=== PATIENT | male | born 1975 | race Caucasian/White ===

== ENCOUNTER 2016-12-22 09:26 | Emergency (ER) | payer OTHER ==
[2016-12-22 09:41] VITALS: RESP 20; TEMP 97.8
[2016-12-22] MEDS ORDERED: SODIUM CHLORIDE 0.9% 1,000 ML IV STA (09:46)
[2016-12-22] MEDS ORDERED: ONDANSETRON 4 MG/2 ML VIAL IVP STA ×2 (09:46→10:10)
[2016-12-22] MEDS ORDERED: HYDROmorphone 1 MG/ML 1 ML SYRINGE IVP STA ×2 (09:46→10:06)
[2016-12-22 10:12] VITALS: PULSE 63
--- NOTE | 2016-12-22 10:17 | ED ---
Abdominal Pain HPI - General Chief Complaint: Abdominal Pain Stated Complaint: kidney stone Time Seen by Provider: 12/22/16 09:46 Source: patient, RN notes reviewed Mode of arrival: ambulatory Limitations: no limitations - History of Present Illness Initial Comments: 41-year-old male presents emergency Department with chief complaint of kidney stone. Patient states that he scheduled to have removal of his kidney stone and its stent placed. Patient states that he is concerned that his had increased pain that his kidneys may not be function. Patient states that he has urinary frequency but denies any dysuria. Patient states that he is very sensitive pain medications and states that [id number]-zva-[id number] medications are helping. Patient states that he was told not to use any anti-inflammatories prior to his procedure. Patient denies fever, chills. - Related Data Previous Rx's Medication Instructions Recorded oxyCODONE-APAP 5-325MG [Percocet 1 tab PO Q6HR PRN #10 tab 12/22/16 5-325 mg] Allergies Allergy/AdvReac Type Severity Reaction Status Date / Time codeine AdvReac Nausea & Verified 12/22/16 10:01 Vomiting Review of Systems ROS Statement: Those systems with pertinent positive or pertinent negative responses have been documented in the HPI. ROS Other: All systems not noted in ROS Statement are negative. Past Medical History Additional Past Medical History / Comment(s): kidney stones History of Any Multi-Drug Resistant Organisms: None Reported Past Surgical History: No Surgical Hx Reported Past Psychological History: No Psychological Hx Reported Smoking Status: Never smoker Past Alcohol Use History: None Reported Past Drug Use History: None Reported General Exam Limitations: no limitations General appearance: alert, in no apparent distress Head exam: Present: atraumatic, normocephalic, normal inspection Respiratory exam: Present: normal lung sounds bilaterally. Absent: respiratory distress, wheezes, rales, rhonchi, stridor Cardiovascular Exam: Present: regular rate, normal rhythm, normal heart sounds. Absent: systolic murmur, diastolic murmur, rubs, gallop, clicks GI/Abdominal exam: Present: soft, tenderness (Minimal), normal bowel sounds. Absent: distended, guarding, rebound, rigid Back exam: Absent: CVA tenderness (R), CVA tenderness (L) Skin exam: Present: warm, dry, intact, normal color. Absent: rash Course Vital Signs 12/22/16 12/22/16 12/22/16 09:38 10:11 11:05 Temperature 97.8 F Pulse Rate 79 63 Respiratory 20 20 Rate Blood Pressure 113/56 123/83 126/85 O2 Sat by Pulse 99 99 Oximetry Medical Decision Making - Medical Decision Making 41-year-old male present emergency department for flank pain, increased pain from kidney stone. Patient states his pain is under control this time. Patient has procedure on Monday. Patient's lab work within normal limits other than some hematuria noted. Return parameters were discussed. - Lab Data Result diagrams: 12/22/16 10:10 12/22/16 10:10 Lab Results 12/22/16 12/22/16 12/22/16 Range/Units 10:10 10:10 10:10 WBC 10.3 (3.8-10.6) k/uL RBC 5.07 (4.30-5.90) m/uL Hgb 15.9 (13.0-17.5) gm/dL Hct 45.9 (39.0-53.0) % MCV 90.4 (80.0-100.0) fL MCH 31.3 (25.0-35.0) pg MCHC 34.6 (31.0-37.0) g/dL RDW 12.4 (11.5-15.5) % Plt Count 307 (150-450) k/uL Neutrophils % 75 % Lymphocytes % 17 % Monocytes % 4 % Eosinophils % 2 % Basophils % 0 % Neutrophils # 7.8 H (1.3-7.7) k/uL Lymphocytes # 1.8 (1.0-4.8) k/uL Monocytes # 0.5 (0-1.0) k/uL Eosinophils # 0.2 (0-0.7) k/uL Basophils # 0.0 (0-0.2) k/uL Sodium 142 (137-145) mmol/L Potassium 4.5 (3.5-5.1) mmol/L Chloride 106 (98-107) mmol/L Carbon Dioxide 24 (22-30) mmol/L Anion Gap 12 mmol/L BUN 9 (9-20) mg/dL Creatinine 0.81 (0.66-1.25) mg/dL Est GFR (MDRD) Af Amer >60 (>60 ml/min/1.73 sqM) Est GFR (MDRD) Non-Af >60 (>60 ml/min/1.73 sqM) Glucose 84 (74-99) mg/dL Calcium 9.8 (8.4-10.2) mg/dL Total Bilirubin 0.9 (0.2-1.3) mg/dL AST 38 (17-59) U/L ALT 53 (21-72) U/L Alkaline Phosphatase 95 (38-126) U/L Total Protein 8.0 (6.3-8.2) g/dL Albumin 4.8 (3.5-5.0) g/dL Amylase 58 (30-110) U/L Lipase 66 (23-300) U/L Urine Color Yellow Urine Appearance Clear (Clear) Urine pH 6.0 (5.0-8.0) Ur Specific [place] 1.013 (1.001-1.035) Urine Protein 1+ H (Negative) Urine Glucose (UA) Negative (Negative) Urine Ketones Negative (Negative) Urine Blood Large H (Negative) Urine Nitrate Negative (Negative) Urine Bilirubin Negative (Negative) Urine Urobilinogen <2.0 (<2.0) mg/dL Ur Leukocyte Esterase Negative (Negative) Urine RBC 77 H (0-5) /hpf Urine WBC 2 (0-5) /hpf Urine Bacteria Occasional H (None) /hpf Hyaline Casts 1 (0-2) /lpf Urine Mucus Rare H (None) /hpf Disposition Clinical Impression: Flank pain Disposition: HOME SELF-CARE Condition: Stable Instructions: Flank Pain (ED) Additional Instructions: Please return to the Emergency Department if symptoms worsen or any other concerns. Prescriptions: oxyCODONE-APAP 5-325MG [Percocet 5-325 mg] 1 tab PO Q6HR PRN #10 tab PRN Reason: Pain Time of Disposition: 11:17
[2016-12-22 10:29] LABS: Basophils % (A) 0 %; CH 32.2; CHCM 35.7; Eosinophils # (A) 0.2 k/uL (0-0.7); Eosinophils % (A) 2 %; HCT 45.9 % (39.0-53.0); HDW 2.75; HGB 15.9 gm/dL (13.0-17.5); Luc # (Auto) 0.09; Luc % (Auto) 1; Lymphocytes # (A) 1.8 k/uL (1.0-4.8); Lymphocytes % (A) 17 %; MCH 31.3 pg (25.0-35.0); MCHC 34.6 g/dL (31.0-37.0); MCV 90.4 fL (80.0-100.0); Mean Platelet Volume 7.7; Monocytes # (A) 0.5 k/uL (0-1.0); Monocytes % (A) 4 %; Neutrophils # (A) 7.8 k/uL (1.3-7.7); Neutrophils % (A) 75 %; RBC 5.07 m/uL (4.30-5.90); RDW 12.4 % (11.5-15.5); WBC 10.3 k/uL (3.8-10.6); WBC (Perox) 10.25
[2016-12-22 10:33] LABS: ALT 53 U/L (21-72); AST 38 U/L (17-59); Alkaline Phosphatase 95 U/L (38-126); Amylase 58 U/L (30-110); Anion Gap 12 mmol/L; Blood Urea Nitrogen 9 mg/dL (9-20); Calcium 9.8 mg/dL (8.4-10.2); Carbon Dioxide 24 mmol/L (22-30); Chloride 106 mmol/L (98-107); Glucose 84 mg/dL (74-99); Non-African American GFR(MDRD) >60 (>60 ml/min/1.73 sqM); Potassium 4.5 mmol/L (3.5-5.1); Sodium 142 mmol/L (137-145); Total Bilirubin 0.9 mg/dL (0.2-1.3)
--- NOTE | 2016-12-22 10:36 | XR ---
Abdomen HISTORY: Abdominal pain, history of kidney stones Frontal view of the abdomen on 2 images No comparisons There is no bowel obstruction or pneumoperitoneum evident. Lung bases are clear. Overlying bowel gas may obscure underlying detail, difficult to exclude nephrolithiasis. Bone mineralization is maintaine d. IMPRESSION: Nonobstructive bowel gas pattern.
[2016-12-22 10:57] LABS: Appearance,Urine Clear (Clear); Bacteria,Urine Occasional /hpf; Bilirubin,Urine Negative (Negative); Glucose,Urine (UA) Negative (Negative); Ketones,Urine Negative (Negative); Leukocyte Esterase,Urine Negative (Negative); Mucus,Urine Rare /hpf; Nitrite,Urine Negative (Negative); Particle Count 2729; Protein,Urine 1+ (Negative); RBC,Urine 77 /hpf (0-5); Specific Gravity,Urine 1.013 (1.001-1.035); UA Billing (MACRO vs. MICRO) MICRO; Urobilinogen,Urine <2.0 mg/dL (<2.0); WBC,Urine 2 /hpf (0-5)
[2016-12-22 11:05] VITALS: BP 126/85
== END 2016-12-22 11:41 | disposition home or self-care (01) ==
LOC: EC 09:26
DX: R10.9 Unspecified abdominal pain (principal); Z88.5 Allergy status to narcotic agent; Z87.442 Personal history of urinary calculi
CPT/HCPCS: 96374; 96375; 96361; 99284; 36415; 80053; 82150; 83690; 85025; 81001; 87086; 74000; J2405; J1170

== ENCOUNTER 2016-12-27 12:19 | Day surgery (SDC) | payer OTHER ==
[2016-12-22 14:43] VITALS: BMI 28.1
[~2016-12-27 12:19] MED LIST: DEXAMETHASONE SOD PHOSPHATE 10 MG/ML 1 ML VIAL IV ONE; HYDROmorphone 1 MG/ML 1 ML SYRINGE IVP PRN; LACTATED RINGERS 1,000 ML IV SCH; MIDAZOLAM 2 MG/2 ML VIAL IV PRN; ONDANSETRON 4 MG/2 ML VIAL IVP ONE; ceFAZolin 2 GM in SODIUM CHLORIDE 0.9% 100 ML IVPB ONE
[2016-12-27] MEDS ORDERED: LIDOCAINE 1% 20 ML VIAL (10MG/ML) FOR IV START INTRADERMA ONE (13:14)
[2016-12-27] MEDS ORDERED: SCOPOLAMINE 1.5MG/72HR PATCH TRANSDERM ONE (13:14)
--- NOTE | 2016-12-27 14:12 | XR ---
Abdomen HISTORY: Left-sided kidney stone Frontal view of the abdomen on 2 images correlated to prior abdomen 22 December 2016 There is a calcification superimposed over the mid pole of the left kidney measuring approximately 6- 7mm, there may be fragmentation. No bowel obstruction or pneumoperitoneum is evident. Probable vascul ar calcifications within the pelvis. IMPRESSION: Left-sided renal calcification is suspected.
[2016-12-27] MEDS ORDERED: fentaNYL (PF) 50 MCG/ML 2 ML AMP ONE (14:33)
[2016-12-27] MEDS ORDERED: HYDROmorphone (PF) 1 MG/ML ONE (14:33)
[2016-12-27] MEDS ORDERED: GLYCOPYRROLATE 0.2 MG/ML 2 ML VIAL ONE (14:33)
[2016-12-27] MEDS ORDERED: LIDOCAINE 1% INJ 10MG/ML (20 ML MDV) ONE (14:33)
[2016-12-27] MEDS ORDERED: MIDAZOLAM 2 MG/2 ML VIAL ONE (14:33)
[2016-12-27] MEDS ORDERED: PROPOFOL 10 MG/ML 20 ML VIAL IV ONE (14:33)
[2016-12-27] MEDS ORDERED: IOHEXOL 350 MG/ML 100 ML BOTTLE MISCELLANE ONE (14:52)
[2016-12-27] MEDS ORDERED: LACTATED RINGERS 1,000 ML IV ONE ×4 (15:06→17:02)
[2016-12-27 16:09] VITALS: TEMP 98
--- NOTE | 2016-12-27 16:14 | P.OP ---
Date of Procedure: 12/27/16 Preoperative Diagnosis: Left Renal Calculus Postoperative Diagnosis: Same Procedure(s) Performed: Cystoscopy, left retrograde pyelogram, left ureteroscopy with Holmium laser lithotripsy and stone basketing, left ureteral stent insertion Anesthesia: ISABEL Surgeon: Nic Valle Estimated Blood Loss (ml): 10 IV fluids (ml): 1,000 Pathology: other (calculus fragments - sent for chemical analysis) Condition: stable Disposition: PACU Indications for Procedure: This 41 year old male has a long history of renal stones, since he was a teen. He currently has had gross hematuria, nausea, and severe pain from an 8 mm left renal pelvis calculus, with mild hydronephrosis. He has thus elected to undergo cystoscopy, left ureteroscopy with Holmium laser lithotripsy, possible stone basketing, and stent insertion. Operative Findings: Bifid left renal pelvis. Left renal calculus. Description of Procedure: The patient was taken to the operating room and placed in the dorsolithotomy position, with legs supported in Bebo stirrups. The external genitalia was prepped and draped sterilely. The 30 lens was used to introduce the 19-Spanish Stortz cystoscopic sheath through the urethra and into the bladder under direct vision. The prostatic urethra showed evidence of mild lateral lobe enlargement. The bladder was examined in its entirety. Both ureteral orifices were normal anatomic location and configuration, and clear urine effluxed from both. No tumors or foreign bodies were seen. Using an 8-Spanish cone-tipped catheter, a left retrograde pyelogram was performed in the standard fashion. The ureter appeared normal, other than the presence of a bifid renal pelvis. The bifurcation might be more accurately considered to be within the proximal most portion of the ureter. No calculi or filling defects were seen. A 0.038 inch Glidewire was passed through the cystoscope. The left ureteral orifice was cannulated, and the Glidewire was advanced up to the lower pole moiety of the left kidney. An 11/13-Spanish ureteral access catheter was advanced over the wire, up to the mid ureter. The Olympus mini flexible ureteroscope was then passed through the ureteral access catheter sheath. The ureteroscope was advanced under direct vision. The upper pole moiety did not contain any calculi. However, a calculus was identified within the lower pole moiety. The 200 micron Holmium laser probe was passed through the ureteroscope, and lithotripsy was performed. The calculus fragmented well. A 1.9-Spanish nitinol basket was used to remove 2 of the larger fragments. These measured only 1-2 mm in diameter, and were sent for chemical analysis. The ureteroscope was removed. The Glidewire was passed up to the left renal pelvis, and the ureteral access catheter was removed. The Glidewire was backloaded into the cystoscope, which was passed into the bladder. A 28 cm, 4.8-Spanish double-J ureteral stent was then placed over the wire. Proper stent positioning was verified fluoroscopically and endoscopically. The bladder was emptied and the cystoscope removed. The patient tolerated the procedure well and was taken to the recovery room in stable condition.
[2016-12-27] MEDS ORDERED: ONDANSETRON 4 MG/2 ML VIAL IVP ONE (16:17)
--- NOTE | 2016-12-27 16:29 | FL ---
Fluoroscopy HISTORY: Pain 54 seconds fluoroscopy time supplied to the referring clinician. 4 intraoperative C-arm images docum ent the procedure. See dictated report from urology.
[2016-12-27] MEDS ORDERED: PROMETHAZINE INJ 25 MG/ML 1 ML VIAL IVPB ONE (16:44)
[2016-12-27 17:28] VITALS: RESP 18
[2016-12-27 18:07] VITALS: BP 130/78; PULSE 89
== END 2016-12-27 18:07 | disposition home or self-care (01) ==
LOC: OR 12:19
PROVIDERS: ATTEND Urology
DX: N13.2 Hydronephrosis with renal and ureteral calculous obstruction (principal); R31.9 Hematuria, unspecified; Z87.442 Personal history of urinary calculi; Z88.5 Allergy status to narcotic agent; Z79.891 Long term (current) use of opiate analgesic
CPT/HCPCS: 52356; 82365; 74000; 74420; C2625; C1758; C1769; J2250; J1100; J2550; Q9967; J0690; J2405; J2001; J3010; J1170; J2704